=== PATIENT | male | born 1965 | race American Indian/Alaskan Native ===

== ENCOUNTER 2017-07-04 15:16 | Emergency (ER) | payer OTHER ==
[~2017-07-04] VITALS: Ht 177.8 cm; Wt 90.7 kg
[~2017-07-04 15:16] MED LIST: ALBU90OI INH; BENZ100A PO; PANT20 PO; Prednisone20 MG PO; Prilosec Otc20 MG PO; SUCR1 PO; Zithromax250 MG PO
[2017-07-04] MEDS ORDERED: Prednisone20 MG PO (16:06)
[2017-07-04] MEDS ORDERED: Benadryl Itch28.3 G1 TOP (16:06)
== END 2017-07-04 16:12 | disposition home or self-care (01) ==
LOC: ER 15:16
DX: L25.9 Unspecified contact dermatitis, unspecified cause (principal); Z88.8 Allergy status to other drugs, medicaments and biological substances; Z79.52 Long term (current) use of systemic steroids
CPT/HCPCS: 99282